=== PATIENT | male | born 2000 | race Caucasian/White ===

== ENCOUNTER 2020-12-24 16:17 | Emergency (ER) | payer OTHER ==
[2020-12-24] MEDS ORDERED: DICLOFENAC SODI75 MG PO (17:23)
== END 2020-12-24 17:50 | disposition home or self-care (01) ==
LOC: FER 16:17
DX: S70.12XA Contusion of left thigh, initial encounter (principal); S30.1XXA Contusion of abdominal wall, initial encounter; Z23 Encounter for immunization; W22.09XA Striking against other stationary object, initial encounter; Y93.23 Activity, snow (alpine) (downhill) skiing, snowboarding, sledding, tobogganing and snow tubing
CPT/HCPCS: 73502; 90471; 90715